=== PATIENT | female | born 2005 | race Caucasian/White ===

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

== ENCOUNTER → 2024-05-20 | Outpatient (CLI) | payer OTHER, MEDICAID, SELFPAY ==
[2024-05-20 10:09] LABS: Erythrocyte Sedimentation Rate < 1 mm/hr (0-30)
[2024-05-20 10:22] LABS: Absolute Lymphocyte Count 2.76 X10^3/uL (0.83-4.51); Absolute Neutrophil Count 3.8 X10^3/uL (2.0-7.7); Basophil# 0.04 X10^3/uL; Basophil% 0.6 % (0-1); Eosinophil# 0.14 X10^3/uL; Eosinophils% 1.9 % (0-5); Hematocrit 39.1 % (37-47); Hemoglobin 12.5 g/dL (12.0-15.0); Lymphocyte # 2.76 X10^3/ul (0.83-4.51); Lymphocyte % 38.3 % (19-41); Mean Corpuscular Hgb 30.9 pg (27.0-32.0); Mean Corpuscular Volume 96.5 fL (81-99); Mean Platelet Vol. 10.3 fl (6.2-12.0); Monocyte# 0.43 X10^3/uL; NRBC Flagged by Analyzer 0 % (0-5); Neutrophil # 3.82 X10^3/uL (2.7-7.7); Neutrophil % 52.9 % (47-70); Platelet Count 306 K/mm3 (150-450); RBC Distribution Width CV 12.2 % (11.6-14.6); RBC Distribution Width SD 43.1 fl (35.1-43.9); Red Blood Count 4.05 M/mm3 (4.2-5.4); White Blood Count 7.2 K/mm3 (4.4-11.0)
[2024-05-20 10:42] LABS: ALB/GLOB Ratio 1.2 RATIO (0.9-2.4); AST(SGOT) 14 U/L (15-37); Alanine Aminotransfer ALT/SGPT 11 U/L (13-56); Albumin, Serum 4.2 g/dL (3.2-5.0); Alkaline Phosphatase 45 U/L (45-117); Anion Gap 5 (5-15); BUN 7 mg/dL (7-18); BUN/Creat Ratio 11.4 RATIO (10-20); CRP < 2.90 mg/L (0.0-3.0); Calcium,Total 9.4 mg/dL (8.5-10.1); Chloride 105 mmol/L (98-107); Creatinine, Serum 0.61 mg/dL (0.55-1.02); EST Glomerular Filtration Rate 131 mL/min (>60); Est Glom Filt Rate - Afr Amer 158 mL/min (>60); Globulin 3.5 g/dL (2.2-4.2); Glucose 98 mg/dL (74-106); Protein, Total 7.7 g/dL (6.4-8.2); Sodium Level 136 mmol/L (136-145)
[2024-05-25 10:42] LABS: Beef <0.10 kU/L (Class 0); Chocolate <0.10 kU/L (Class 0); Codfish <0.10 kU/L (Class 0); Corn <0.10 kU/L (Class 0); Egg, Whole <0.10 kU/L (Class 0); Milk (Cow) <0.10 kU/L (Class 0); Mussels <0.10 kU/L (Class 0); Peanut <0.10 kU/L (Class 0); Pork <0.10 kU/L (Class 0); Salmon <0.10 kU/L (Class 0); Shrimp <0.10 kU/L (Class 0); Soybean <0.10 kU/L (Class 0); Tuna <0.10 kU/L (Class 0); Wheat <0.10 kU/L (Class 0)
== END | disposition home or self-care (01) ==
LOC: LAB 09:18
PROVIDERS: PCP Nurse Practitioner Primary Care; Referring Provider Student in an Organized Health Care Education/Training Program; Visit Provider Student in an Organized Health Care Education/Training Program
DX: R10.9 Unspecified abdominal pain (principal)
CPT/HCPCS: 36415; 80053; 85025; 85652; 86003; 86005; 86140

== ENCOUNTER 2024-06-05 09:30 | Day surgery (SDC) | payer OTHER, MEDICAID, SELFPAY ==
--- NOTE | 2024-06-05 | COLBX_PTH ---
PATIENT: ILEANA XIE LOC: EN U#:[id number] AGE/SX: ROOM: RE06/05/[address]: Dr. Jese Garcia DO : 2005 BED: DIS: 06/05/2024 SPEC #: [id number] RECD: 06/05/24 12:51 STATUS: VLADIMIR REAraceli #: [id number] KELVIN: 06/05/24 00:[address]: Jese Garcia DEPT: SURGICAL PATHOLOGY RECD BY: Pan Bejarano ENTERED: 06/05/24 13:36 SP TYPE: COLON BX OTHR DR: Shira Hannon, TELECOMMUNICATIONS SUPPORT-C Tissues: A - Ileum, NOS B - COLON BIOPSY C - Rectum, NOS Procedures: Surgery Specimen Level IV HEADER OPERATION: Colonoscopy with biopsies PRE-OP DIAGNOSIS: Abdominal pain TISSUE SUBMITTED: A- Terminal ileum biopsy, B- Random colon biopsy, C- Rectum biopsy MICROSCOPIC DIAGNOSIS A. Terminal ileum, biopsy: Fragments of small intestinal mucosa, no pathologic diagnosis. B. Colon, random biopsy: Fragments of colonic mucosa, no pathologic diagnosis. C. Rectum, biopsy: A fragment of colonic mucosa, no pathologic diagnosis. Jovanna 06/06/2024 MICROSCOPIC DESCRIPTION Slides are reviewed. GROSS DESCRIPTION A. Received in fixative is one container labeled with the patient's name and designated Terminal ileum biopsy. The specimen consists of multiple irregular fragments of light yepez soft tissue that in aggregate measure 1.0 x 0.3 x 0.1 cm. The specimen is totally submitted in one cassette. B. Received in fixative is one container labeled with the patient's name and designated Random colon biopsy. The specimen consists of multiple irregular fragments of light yepez soft tissue that in aggregate measure 2.0 x 0.5 x 0.1cm. The specimen is totally submitted in one cassette. C. Received in fixative is one container labeled with the patient's name and designated Rectum biopsy. The specimen consists of one irregular fragment of light yepez soft tissue that measures 0.3 x 0.3 x 0.1 cm. The specimen is totally submitted in one cassette. RONNIDamian 06/05/2024 TC:4 CPT:23644v4
--- NOTE | 2024-06-05 09:47 | PRE.ANES_ITS ---
ASA Classification* ASA Classification ASA Classification: 2 Assessment & Plan Anesthesia* Anesthesia Assessment Anesthesia Assessment: Discussed sedation and/or anesthesia options, risks, benefits, and alternatives with patient/parents/legal guardian/POA. Questions invited. The patient/parents/legal guardian/POA seems to understand and agrees to proceed with anesthesia plan. Reviewed the physical assessment, medical history, allergy history and patient home medications list prior to surgery/procedure/anesthetic and documented any changes. Performed airway and anesthesia risk assessments. Anesthesia Type Anesthesia Type: MAC (see written pre anesthesia record for full assessment) Anesthesia Focused Assessment* Airway Assessment Mouth opens: >3 cm Mallampati Score: II Focused Labs Anesthesia Preop lab: CBC WBC 7.2 K/mm3 (4.4-11.0) 05/20/24 09:24 RBC 4.05 M/mm3 (4.2-5.4) L 05/20/24 09:24 Hgb 12.5 g/dL (12.0-15.0) 05/20/24 09:24 Hct 39.1 % (37-47) 05/20/24 09:24 Plt Count 306 K/mm3 (150-450) 05/20/24 09:24 CHEMISTRY Potassium 4.0 mmol/L (3.5-5.1) 05/20/24 09:24 Sodium 136 mmol/L (136-145) 05/20/24 09:24 BUN 7 mg/dL (7-18) 05/20/24 09:24 Creatinine 0.61 mg/dL (0.55-1.02) 05/20/24 09:24 Glucose 98 mg/dL (74-106) 05/20/24 09:24 COAG Urine Test Negative Negative 09/07/22 05:45 Pre-Assessment Diagnosis/Proposed Procedure Planned Operative Procedure(s): COLONOSCOPY Anesthesia History 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 When Was Last Pacemaker Check QUESTION #4 FULL TEXT: You/Your Family Experience fever (hyperthermia) with Anesthesia Last Oral Intake Last Oral intake: Last Oral Intake NPO since Meds taken in AM with sips of water? Meds patient instructed to take am of surgery PONV PONV - french instructor: PONV - french instructor Female Yes 05/30/24 10:26 HX of Motion Sickness No 05/30/24 10:26 HX of N/V After Surgery No 05/30/24 10:26 Non-Smoker Yes 05/30/24 10:26 Duration of Surgery greater No 05/30/24 10:26 than 60 minutes Number of Risk Factors 2 05/30/24 10:26 PONV Score Moderate Risk 05/30/24 10:26 Height & Weight Height & Weight: Anesthesia: Height & Weight Height 5 ft 3 in 12/30/22 13:24 Respiratory Assessment Respiratory Assessment - french instructor: Respiratory Tract Infection Hx - french instructor Hx Respiratory Tract Infection No 05/30/24 10:26 STOP Sleep Apnea STOP Sleep Apnea - french instructor: STOP Sleep Apnea - french instructor Hx Hypertension No 05/30/24 10:26 Hx Sleep Apnea No 05/30/24 10:26 CPAP BIPAP Do you snore loudly (louder No 05/30/24 10:26 than talking or can be heard Do you often feel tired/ No 05/30/24 10:26 fatigued/ sleepy during daytime? Has anyone observed you stop No 05/30/24 10:26 breathing during sleep? STOP Results Negative 05/30/24 10:26 QUESTION #5 FULL TEXT : Do you snore loudly (louder than talking or can be heard through closed doors)? 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 Specify any problems Hx of Preganancy in last 3 No 05/30/24 10:26 Months Nurse Filling Out Transfusion [email or web address] 05/30/24 10:26 & Questions: Date: 05/30/24 05/30/24 10:26 Time: 10:27 05/30/24 10:26 Patient unable to answer at this time (ie. confused, unrespo /Reproduction History /Reproductive History - french instructor: /Reproductive Hx- french instructor Hx Now Gestational Age (in weeks): EDC: Hx Hx Para Hx Section SAB No 09/01/22 12:26 Active Medications Active Medications: Current Medications Generic Name Dose Route Start Last Admin Trade Name Freq PRN Reason Stop Dose Admin Lactated Ringer's 1,000 mls @ 15 mls/hr 06/05/24 09:45 IV .Q48H CAM[place]LE PFSH Medical History Alcohol use Easy bruising Low iron Vasovagal near syncope Asthma Shortness of breath on exertion Non-smoker Hx of fracture of femur Anxiety Dysmenorrhea Depression Acne Abdominal pain Mucus in stool IBS (irritable bowel syndrome) Home Medications ?Medication ?Instructions ?Recorded ?Last Taken ?Type dicyclomine 20 mg tablet 20 mg PO DAILY PRN stomach 05/18/22 09/06/22 History fluticasone propionate 50 1 spray intranasal PRN PRN 05/18/22 09/06/22 History mcg/actuation nasal ALLERGIES spray,suspension norgestimate 0.25 mg-ethinyl 1 tab PO DAILY 05/18/22 09/06/22 History estradiol 35 mcg tablet (Sprintec (28)) mesalamine 1.2 gram tablet,delayed 2.4 g (2 x 1.2 gram) PO DAILY 8 05/20/24 Unknown Rx release weeks #112 tabs budesonide 3 mg 9 mg PO QAM PRN STOMACH 05/30/24 Unknown History capsule,delayed,extended release Allergy/AdvReac Type Severity Reaction Status Date / Time animal dander Allergy Intermediate Runny nose Verified 06/05/24 09:39 Surgical History Hx of wisdom tooth extraction History of tonsillectomy and adenoidectomy Social History Smoking Status: Never smoker alcohol intake: never Review of Systems (Anesthesia) ROS Narrative System reviewed and no additional complaints, except as documented.
[2024-06-05 09:55] VITALS: BP 123/78; PULSE 88; RESP 16; TEMP 36.2; O2SAT 100; BMI 22.2
[2024-06-05] MEDS: Lactated Ringers 1,000 ML 15 ML IV (09:58)
[2024-06-05 10:12] LABS: Internal QC Validated? YES +Cl - CLEAR BKGD; Pregnancy, Urine Negative Negative; Record Kit Lot#,Urine Preg HCG0000772476
--- NOTE | 2024-06-05 10:48 | HP.PCM_ITS ---
History and Physical Date of Admission: 06/05/24 marek's Details: ILEANA XIE, is a 19 F who presents to the office today for f/u for Crohns disease 09.07.22 EGD revealed lots of bile in the stomach and duodenum; mild gastritis on biopsy. Colonoscopy revealed congested mucosa in the rectum, otherwise normal colon, normal TI; no pathologic diagnosis on biopsies of TI, colon, rectum. Crohn's diagnosis based on: Capsule endoscopy revealed ulcers in small bowel w/ focal inflammation, and mild to moderate diffuse inflammation later in small bowel--consistent with Crohn's.? Elevated CRP. [facility] panel suggestive of aggressive Crohn's. OV 8.. Patient has been doing ok since last visit in 2022. She was trying to get approved for [employer] at that time but was having alot of trouble getting approved so she gave up. She has been taking only dicyclomine as needed for her abdominal pain. She has been focusing on her diet which has been helpful. She is avoiding gluten, diary and corn. In past allergy testing she said RAST has been negative but she has come back with sensitivities. She has had constipation with bowel movements every other day. She takes dulcolax as needed. She describes flares that happen every other month with abdominal cramping, sweating, n/v, diarrhea and chills. This normally lasts for a few hours. She does not wish to be on biologic therapy at this time and would prefer to follow up a strp up approach rather than step down. She ROS Const Constitutional: No fatigue, fever(s) or weight change ENT ENT: No difficulty swallowing Gastro GI: Positive for abdominal pain, change in bowel habits, constipation, excessive flatus and nausea/dyspepsia; No belching, bloating, change in stool character, coffee ground emesis, cramping, diarrhea, heartburn, difficulty swallowing, feeling full early, incontinent of stools, Vomiting blood/hematemesis, Blood in stool, loose stools, Black,tarry stools, pain with swallowing, vomiting or other Musc Musculoskeletal: No joint pain Skin Skin: No yellowing of the eye or itchy eyes Psych Psychiatric: Positive for anxiety and No depression Endo Endocrine: No fatigue or weight change Aller/Imm Allergy/Immunologic: No itchy eyes Jensen/Lymp Hematologic/Lymphatic: No easy bleeding or easy bruising Exam Const General: cooperative and comfortable Nutritional Appearance: average body habitus and well nourished [facility] Head: normal to inspection Ears: hearing grossly normal bilaterally Nose: external nose normal Face and sinus: normal facial exam Mouth: oral mucosae normal Throat: posterior oropharynx normal Eyes General: appearance normal, both eyes and all related structures Neck Neck: normal visual inspection Chest Chest palpation & inspection: normal inspection of the chest and normal palpation of entire chest wall Resp Effort & Inspection: normal respiratory effort Auscultation: Bilateral: Clear to Auscultation Cardio Palpation: normal PMI Rate: regular rate Rhythm: regular rhythm GI Inspection: normal to inspection Auscultation: normal bowel sounds Percussion: normal to percussion Palpation: no hepatosplenomegaly Skin General: no rashes or lesions noted Neuro General: patient alert Extrem General: normal to inspection Psych Affect: normal affect Assessment and Plan Assessment and Plan (1) Abdominal pain: Status: Acute Plan: patient is here for f/u for Crohns disease. She was last seen in the office in 2022. Her colonoscopy biopsy did not show crohns but capsule endoscopy showed ulcers. Labs indicated aggressive Crohn disease -We will order blood work for inflammation with ESR and CRP -Will order stool testing for inflammation as well -She will have colonoscopy scheduled -She does not wish to be on biologic medications at this time. We will use a step up approach to treat her with Mesalamine 1.2 g BID. -She will continue taking Dicyclomine as needed for pain and Miralax daily as needed for constipation -She will message me on the portal in 1 month to let me know how her symptoms are Orders: Orders Erythrocyte Sed Rate Today R10.9 - Unspecified abdominal pain CRP Today R10.9 - Unspecified abdominal pain Calprotectin, Stool Today R10.9 - Unspecified abdominal pain Stool Lactoferrin/WBC Today K58.9 - Irritable bowel syndrome without diarrhea Comprehensive Metabolic Profil Today R10.9 - Unspecified abdominal pain CBC W/Diff, Automated Today R10.9 - Unspecified abdominal pain Pancreatic Elastase, Fecal Today R10.9 - Unspecified abdominal pain Allergen, Food Profile 14 Today R10.9 - Unspecified abdominal pain Medications: New mesalamine 2.4 grams (2 x 1.2 gram) PO DAILY 8 weeks 112 tabs 0RF I have examined the patient and the H&P has been reviewed. There are no clinical changes since date of exam.
[2024-06-05 11:21] VITALS: BP 100/69; BP 123/78; PULSE 90; RESP 16; TEMP 36.3; O2SAT 100
--- NOTE | 2024-06-05 11:24 | OP.CCLET_ITS ---
06/05/2024 Shira Hannon Re : Colonoscopy procedure for Sharon Barron Dear Parvez This procedure was performed on Wednesday, June 05, 2024. My impressions and recommendations are as follows: Impressions : - The entire examined colon is normal. Biopsied. - The examined portion of the ileum was normal. Biopsied. Recommendations : - Discharge patient to home. - Resume previous diet. - Await pathology results. - Repeat colonoscopy for surveillance based on pathology results. - Return to GI office. - Continue present medications. My findings are described in the full procedure note, which is enclosed. If I can be of further assistance, please feel free to contact me at . Sincerely, Jese Garcia, 06/05/2024 11:24:04 AM This report has been signed electronically.
--- NOTE | 2024-06-05 11:24 | OP.COLON_ITS ---
Patient Name: Sharon Barron Procedure Date: 06/05/2024 10:58 AM Date of : 2005 Age: 19 Procedure: Colonoscopy Indications: Crohn's disease of the colon Providers: Jese Garcia DO Referring MD: Shira Hannon Medicines: Monitored Anesthesia Care Patient Profile: This is a 19 year old female. Refer to note in patient chart for documentation of history and physical. Last Colonoscopy: 3 years ago. Complications: No immediate complications. Procedure: Pre-Anesthesia Assessment: - Prior to the procedure, a History and Physical was performed, and patient medications and allergies were reviewed. The patient is competent. The risks and benefits of the procedure and the sedation options and risks were discussed with the patient. All questions were answered and informed consent was obtained. Patient identification and proposed procedure were verified by the physician in the pre-procedure area. Mental Status Examination: alert and oriented. Airway Examination: normal oropharyngeal airway and neck mobility. Respiratory Examination: clear to auscultation. CV Examination: normal. Prophylactic Antibiotics: The patient does not require prophylactic antibiotics. Prior Anticoagulants: The patient has taken no anticoagulant or antiplatelet agents. ASA Grade Assessment: II - A patient with mild systemic disease. After reviewing the risks and benefits, the patient was deemed in satisfactory condition to undergo the procedure. The anesthesia plan was to use moderate sedation / analgesia (conscious sedation). Immediately prior to administration of medications, the patient was re-assessed for adequacy to receive sedatives. The heart rate, respiratory rate, oxygen saturations, blood pressure, adequacy of pulmonary ventilation, and response to care were monitored throughout the procedure. The physical status of the patient was re-assessed after the procedure. After I obtained informed consent, the scope was passed under direct vision. Throughout the procedure, the patient's blood pressure, pulse, and oxygen saturations were monitored continuously. The Colonoscope was introduced through the anus and advanced to the cecum, identified by appendiceal orifice and ileocecal valve. The colonoscopy was performed without difficulty. The patient tolerated the procedure well. The quality of the bowel preparation was adequate. The ileocecal valve, appendiceal orifice, and rectum were photographed. Scope In: 11:04:21 AM Scope Withdrawal Time 0 hours 6 minutes 57 seconds Scope Out: 11:16:27 AM Total Procedure Duration Time 0 hours 12 minutes 6 seconds Findings: The perianal and digital rectal examinations were normal. The colon (entire examined portion) appeared normal. Biopsies were taken with a cold forceps for histology. Verification of patient identification for the specimen was done. Estimated blood loss was minimal. The terminal ileum appeared normal. Estimated blood loss was minimal. Biopsies were taken with a cold forceps for histology. Verification of patient identification for the specimen was done. Estimated blood loss was minimal. Impression: - The entire examined colon is normal. Biopsied. - The examined portion of the ileum was normal. Biopsied. Recommendation: - Discharge patient to home. - Resume previous diet. - Await pathology results. - Repeat colonoscopy for surveillance based on pathology results. - Return to GI office. - Continue present medications. Procedure Code(s): --- Professional --- 00365, Colonoscopy, flexible; with biopsy, single or multiple CPT copyright 2021 [employer] [place] [employer]. All rights reserved. The codes documented in this report are preliminary and upon traveling auditor review may be revised to meet current compliance requirements. Jese Garcia DO 06/05/2024 11:24:04 AM This report has been signed electronically. Number of Addenda: 0 Note Initiated On: 06/05/2024 10:58 AM
--- NOTE | 2024-06-05 11:25 | PCM.POST.ANE ---
Anesthesia: Postop Eval I Current Vital Signs Temperature: 97.4 F Pulse Rate: 84 Blood Pressure: 100/69 Respiratory Rate: 16 Pulse Ox: 100 Oxygen Delivery Method: Room Air Assessment Airway patent: Yes Spontaneous unlabored respirations: Yes Mental status: Awake and Calm nausea: No Vomiting: No Anesthesia Complication: No Fluid Hydration Crystalloid volume administer (ml): 600 Total IV fluid infused: 600 Progress Note Anesthesia document: Postop Eval 1 completed: Yes
[2024-06-05 11:26] VITALS: BP 100/69; PULSE 84; RESP 16; TEMP 36.3; O2SAT 100
[2024-06-05 11:29] VITALS: BP 102/64; BP 123/78; PULSE 79; RESP 16; O2SAT 100
[2024-06-05 11:33] VITALS: BP 123/78; BP 99/69; PULSE 79; RESP 16; TEMP 36.6; O2SAT 100
--- NOTE | 2024-06-05 11:44 | PCM.POSTANE2 ---
Anesthesia Postop Eval I Sum Postop Eval Completion status Anesthesia document: Postop Eval 1 completed: Yes Anesthesia Postop Eval I Summary Anesthesia Postop Eval I Summary: Anesthesia Postop Eval I: Assessment Summary Airway patent Yes 06/05/24 11:26 [email or web address] Spontaneous unlabored Yes 06/05/24 11:26 [email or web address] respirations Mental status Awake,Calm 06/05/24 11:26 [email or web address] nausea No 06/05/24 11:26 [email or web address] Vomiting No 06/05/24 11:26 [email or web address] Anesthesia Postop Eval I: Fluid Summary Crystalloid volume administer 600 06/05/24 11:26 [email or web address] (ml) Colloids volume administered ( ml) Blood Product volume administered (ml) Total IV fluid infused 600 06/05/24 11:26 [email or web address] Anesthesia Postop Eval I: Summary Notes Anesthesia Complication No 06/05/24 11:26 [email or web address] Anesthesia Complication Comment: Post-operative progress note Anesthesia: Postop Eval II Evaluation Mental status: Awake Pain Level: 0 nausea: No Vomiting: No
[2024-06-05 11:47] VITALS: BP 123/78
== END 2024-06-05 12:04 | disposition home or self-care (01) ==
LOC: EN 09:30 → AC 09:32
PROVIDERS: Anesthesiology; PCP Nurse Practitioner Primary Care; Referring Provider Nurse Practitioner Primary Care; Visit Provider Internal Medicine Gastroenterology
PROC: 0DJD8ZZ Inspection of Lower Intestinal Tract, Via Natural or Artificial Opening Endoscopic (ICD-10-PCS; CPT 45378; principal; 2024-06-05 10:25)
DX: R10.9 Unspecified abdominal pain (principal); F41.9 Anxiety disorder, unspecified; F32.A Depression, unspecified; J45.909 Unspecified asthma, uncomplicated; Z79.899 Other long term (current) drug therapy
CPT/HCPCS: 45380; 81025; 88305; J7120; J2405

== ENCOUNTER → 2024-07-23 | Outpatient (CLI) | payer OTHER, MEDICAID, SELFPAY ==
--- NOTE | 2024-07-23 09:35 | MRI_ITS ---
STUDY: MR ENTEROGRAPHY WITH CONTRAST REASON FOR EXAM: Female, 19 years old. CROHN''S DISEASE TECHNIQUE: Multipulse sequence MRI performed with IV contrast according to standard MR enterography protocol following administration of oral contrast for maximal bowel distention. Images were obtained from the dome of the diaphragm to the symphysis pubis. IV 12ML CLARISCAN was administered intravenously. TECHNICAL QUALITY: Image Quality: Satisfactory Small Bowel Distension: Adequate. COMPARISON: MRI of the abdomen dated October 18, 2022. CT of abdomen and pelvis dated July 29, 2022. FINDINGS: Bowel: Bowel wall thickening: Absent. Skip lesions: None. Vascularity: Normal. Enhancement: Normal. Fistula: None. Abscess: None. Other Findings: The lung bases are unremarkable. The visualized portions of the heart are within normal limits Normal liver. Normal gallbladder and extrahepatic biliary system. Normal spleen. Normal pancreas. Normal bilateral adrenal glands. Normal right kidney. Normal left kidney. Normal visualized stomach. Normal colon. No demonstrated bowel obstruction. No intraluminal masses are seen. No free fluid is present. Normal abdominal aorta. Normal interior vena cava. Normal retroperitoneum. Normal urinary bladder. Normal uterus and bilateral ovaries. Normal abdominal wall. Normal osseous structures. MRI/Enterography Abd/Pel IMPRESSION: 1. Normal MR enterography. Electronically Signed: Jesse Valle MD at 15:19 EDT ,
[2024-07-23 10:03] VITALS: BP 108/72; PULSE 71; RESP 16; O2SAT 99
[2024-07-23 10:05] VITALS: BP 108/72; PULSE 71; RESP 16; O2SAT 99; BMI 23.9
[2024-07-23] MEDS: Glucagon 1 MG/ML Syringe IV (11:27)
[2024-07-23] MEDS: 0.9% Saline Lock 10 ML Syringe IV (11:27)
[2024-07-23 11:46] VITALS: BP 115/68; PULSE 86; RESP 16; O2SAT 99
== END | disposition home or self-care (01) ==
LOC: MRI 09:19
PROVIDERS: PCP Nurse Practitioner Primary Care; Referring Provider Student in an Organized Health Care Education/Training Program; Visit Provider Student in an Organized Health Care Education/Training Program
DX: K50.90 Crohn's disease, unspecified, without complications (principal)
CPT/HCPCS: 74183; 96374; A9575; A4216; J1610